=== PATIENT | female | born 1980 | race Two or more races ===

== ENCOUNTER 2025-01-06 12:55 | Emergency (ER) | payer OTHER ==
[~2025-01-06] VITALS: Ht 167.6 cm; Wt 59.0 kg
[2025-01-06] MEDS ORDERED: 0.9 % SODIUM CHLORIDE 1,000 ML IV SCH (16:45)
[2025-01-06] MEDS ORDERED: MORPHINE SULFATE 4 MG/ML CARTRIDGE IV ONE (16:45)
[2025-01-06] MEDS ORDERED: KETOROLAC TROMETHAMINE 15 MG VIAL IU ONE (16:45)
[2025-01-06] MEDS ORDERED: ONDANSETRON HCL 2 MG/ML VIAL IV ONE (16:45)
[2025-01-06] MEDS ORDERED: KETOROLAC TROMETHAMINE 30 MG VIAL ONE (16:51)
[2025-01-06] MEDS ORDERED: ONDANSETRON HCL 2 MG/ML VIAL ONE (16:51)
[2025-01-06 17:20] LABS: BASO % 0.8 % (0.1-1.2); EOS # 0.23 (0.04-0.54); EOS % 3.0 % (0.7-7.0); LYMPH # 2.56 (1.18-3.74); LYMPH % 33.8 % (19.3-53.1); MEAN PLATELET VOLUME 9.10 fl (9.4-12.4); MONO # 0.49 (0.24-0.82); MONO % 6.5 % (4.7-12.5); NEUT # 4.22 (1.56-6.13); NEUT % 55.6 % (34.0-71.1); RED CELL DISTRIBUTION WIDTH 13.2 % (11.6-14.4)
[2025-01-06 17:31] LABS: URINE APPEARANCE Clear; URINE BILIRRUBIN Negative (NEGATIVE); URINE BLOOD Negative; URINE COLOR Yellow; URINE GLUCOSE Negative (NEGATIVE); URINE KETONE Negative (NEGATIVE); URINE LEUKOCYTE Negative; URINE NITRATE Negative; URINE PROTEIN Negative (NEGATIVE); URINE UROBILINOGEN 0.2 E.U./dl
[2025-01-06 17:32] LABS: ERYTHROCYTE SEDIMENTATION RATE 16 mm/hr (0-20)
[2025-01-06 17:38] LABS: URINE BACTERIA 56.3 uL (0.0-1933); URINE EPITHELIAL CELLS 4.7 uL (0.0-38.8); URINE RBC 2.4 uL (0.0-20.8); URINE WBC 2.2 uL (0.0-23.2)
[2025-01-06 17:41] LABS: URINE CAST 0.00 uL (0.0-1.40)
[2025-01-06 18:02] LABS: INR 1.0
[2025-01-06 18:10] LABS: ALT/SGPT 27 U/L (12-78); AST/SGOT 16 U/L (15-37); BILIRUBIN TOTAL 0.31 mg/dL (0.3-1.2); BUN CREA RATIO 24 (7.0-25.0); CREATININE SERUM 0.70 mg/dL (0.55-1.02); GFR 91.33; GLOBULINA 4.4 G/DL (2.4-3.5); GLUCOSE FASTING 89 mg/dL (65-100); OSMOLALITY SERUM 282 MOSM/KG (275-295)
[2025-01-06 18:11] LABS: HCG QUANTITATIVE < 1 mUI/mL (1-3)
[2025-01-06] MEDS ORDERED: DICY20TA PO (21:44)
[2025-01-06] MEDS ORDERED: CIPRO500 MG PO (21:44)
[2025-01-06] MEDS ORDERED: PEPCID AC20 MG PO (21:44)
[2025-01-06] MEDS ORDERED: INTESTINEX680 M1 PO (21:44)
== END 2025-01-06 22:07 | disposition home or self-care (01) ==
LOC: ER 12:56
PROVIDERS: General Practice
DX: R10.32 Left lower quadrant pain (principal); K57.32 Diverticulitis of large intestine without perforation or abscess without bleeding; Z88.0 Allergy status to penicillin; Z91.013 Allergy to seafood; K21.9 Gastro-esophageal reflux disease without esophagitis; Z87.19 Personal history of other diseases of the digestive system